=== PATIENT | female | born 1935 | race Caucasian/White ===

== ENCOUNTER 2021-04-19 16:02 | Inpatient (IN) | payer OTHER, MEDICARE, SELFPAY ==
[~2021-04-19] VITALS: Ht 162.6 cm; Wt 41.3 kg
--- NOTE | 2021-04-19 16:02 | NUR ---
BIBA TO BED 1
[2021-04-19 16:08] VITALS: BP 191/93
--- NOTE | 2021-04-19 16:13 | NUR ---
SAID AT BEDSIDE EVALUATING PT
[2021-04-19] MEDS ORDERED: LABETALOL 100 MG/20 ML VIAL IVP ONE (16:25)
[2021-04-19] MEDS ORDERED: NACL 0.9% 1,000 ML IV ONE (16:25)
--- NOTE | 2021-04-19 16:34 | NUR ---
PATIENT OUT OF ROOM SAP ARIBA CONSULTANT TO ATTEMPT ABG AT A LATER TIME
[2021-04-19] MEDS ORDERED: metroNIDAZOLE 500 MG/NS PREMIX 100 ML IV ONE (16:35)
--- NOTE | 2021-04-19 17:06 | NUR ---
85 Y/O F BIBA FROM [facility] PATIENT PRESENTS TO ED WITH NG TUBE PULLED AT CARE SITE AND NEW ONSET OF SOB. [facility] STATES PT WAS AT FACILITY, O2 STAT OF 78% ON RA, PT WAS PUT ON NONREBREATHER 10 L, NOW AT 100% . DENIES N/V/D; SKIN IS EDEMATOUS/COOL/DRY; AAOX0, NON VERBAL, BASELINE, UNABLE TO AMBULATE; LUNGS RHONCHI BILATERALLY, EVEN RISE AND FALL OF THE CHEST, TACHYPNEA 33RR; HR EVEN AND REGULAR; UNABLE TO DETERMINE PAIN; PATIENT POSITIONED FOR COMFORT; HOB ELEVATED; BEDRAILS UP X2; BED DOWN. ER MD MADE AWARE OF PT STATUS. PMH: L BASAL GANGLLEA HEMORRHAGE, ACUTE STROKE R SIDE WEAKNESS, DEMENTIA NKA PT HAS PICC LINE ON L SIDE UPPER ARM AND JONES IN PLACE
[2021-04-19 17:08] LABS: BASOPHILS % (AUTO) 0.1 % (0.0-2.0); HEMOGLOBIN 10.2 g/dL (12.0-16.0); LYMPHOCYTES # (AUTO) 0.6 K/uL (2.5-16.5); LYMPHOCYTES % (AUTO) 4.2 % (20.5-51.1); MEAN CORPUSCULAR HEMOGLOBIN 29 pg (27-31); MEAN CORPUSCULAR HGB CONC 33 g/dL (33-37); MONOCYTES # (AUTO) 1.1 K/uL (0.8-1.0); MONOCYTES % (AUTO) 7.7 % (1.7-9.3); NEUTROPHILS # (AUTO) 12.3 K/uL (1.8-7.7); PLATELET COUNT (AUTO) 166 K/uL (140-450); RED BLOOD CELL COUNT(AUTO) 3.48 MIL/uL (4.20-5.40); RED CELL DISTRIBUTION WIDTH 14.5 % (11.6-13.7)
[2021-04-19] MEDS ORDERED: cefTRIAXone 1,000 MG VIAL ONE (17:09)
[2021-04-19] MEDS ORDERED: OSMITROL 25% 12.5 GM/50 ML VIAL IV ONE ×2 (17:15→18:10)
[2021-04-19] MEDS ORDERED: NICARDIPINE HYDROCHLORIDE 25 MG in NACL 0.9% 240 ML IV ONE ×2 (17:15→19:40)
[2021-04-19] MEDS ORDERED: levETIRAcetam 1,000 MG in NACL 0.9% 100 ML IV ONE (17:15)
[2021-04-19 17:28] LABS: ALBUMIN 2.4 g/dL (3.4-5.0); ANION GAP 9.7 (8-16); ASPARTATE AMINOTRANSFERASE 41 U/L (15-37); CARBON DIOXIDE 31.7 mmol/L (21-32); CHLORIDE 111 mmol/L (98-107); GLUCOSE 132 mg/dL (74-106); SODIUM SERUM 150 mmol/L (136-145); TOTAL BILIRUBIN 0.5 mg/dL (0.0-1.0); UREA NITROGEN, BLOOD 26 mg/dL (7-18)
[2021-04-19 17:31] LABS: POTASSIUM 2.4 mmol/L (3.5-5.1)
--- NOTE | 2021-04-19 17:35 | NUR ---
14 F NG TUBE PLACED, XRAY CHEST ORDER FOR PLACEMENT
[2021-04-19 17:39] LABS: RSV NEGATIVE (NEGATIVE)
[2021-04-19] MEDS ORDERED: NICARDIPINE HYDROCHLORIDE 2.5 MG/ML VIAL IV ONE (17:55)
[2021-04-19] MEDS ORDERED: MAG SULF 2000 MG/WATER PREMIX 50 ML IV PRN (19:00)
[2021-04-19] MEDS ORDERED: ONDANSETRON 4 MG/2 ML VIAL IVP PRN (19:00)
[2021-04-19] MEDS ORDERED: levETIRAcetam 100 MG/ML VIAL IV ONE (19:03)
--- NOTE | 2021-04-19 19:27 | NUR ---
WAS NOT ABLE TO START MANNITOL DUE TO LACK OF IV SITE, ATTEMPTED 3 TIMES, NO SUCCESS, INFORMED INCOMING NURSE, MANNITOL AT BEDSIDE READY FOR INFUSION
--- NOTE | 2021-04-19 19:28 | NUR ---
Pt report given to MICHELLE VALIENTE. Transfer of care at this time.
--- NOTE | 2021-04-19 19:30 | NUR ---
received pt from Day shift Bettye Isaacs. pt in gown. connected to vs monitor. triple lumen PICC observed on Left brachial. pt is an 85 year old female brought in from [facility] with hx of CVA, Dementia, HTN for c/o misplaced NG tube and dyspnea. pt is currently a/o x 0 gcs 8. observed new 16fr indwelling urinary catheter placed. was given Mannitol for intracranial hemorrhage.
[2021-04-19 19:32] VITALS: BP 191/85
--- NOTE | 2021-04-19 19:45 | NUR ---
Per Dr. King, advance NGT 8cm.
[2021-04-19] MEDS ORDERED: POTASSIUM CHLORIDE 20% 40 MEQ/15 ML UDC NG SCH (19:50)
--- NOTE | 2021-04-19 19:59 | NUR ---
pt placed oh HFNC at 40lpm 80% fi02
--- NOTE | 2021-04-19 20:01 | NUR ---
NGT advance 8cm approx. pt tolerated well. awaiting XR confirmation .
[2021-04-19] MEDS: KCL 20 MEQ/WATER INJ PREMIX 200 ML IV PRN (20:43)
--- NOTE | 2021-04-19 21:44 | NUR ---
NAD at this time. IV lines checked and patent.
--- NOTE | 2021-04-19 22:49 | NUR ---
Nicardipine drip titrated down to 3mg/hr for BP controlled at 139/59. will continue to titrate down per protocol. pt still connected to HFNC 40lpm at 80% FI02.
[2021-04-20] VITALS (17 sets, daily range): BP systolic 138–174; BP diastolic 56–79
[2021-04-20] MEDS ORDERED: PIPERACILLIN/TAZOBACTAM 3.375 GM in DEXTROSE 5% 50 ML IV SCH ×2
--- NOTE | 2021-04-20 | NUR ---
NAD at this time. Nicardipine drip continues to run at 3mg/hr. BP goal maintained < 160mmHg.
[2021-04-20] MEDS ORDERED: NICARDIPINE HYDROCHLORIDE 25 MG in NACL 0.9% 240 ML IV PRN ×2 (00:05→09:15)
[2021-04-20] MEDS ORDERED: PIPERACILLIN/TAZOBACTAM 2.25 GM VIAL IV ONE ×2 (00:05→05:42)
[2021-04-20] MEDS ORDERED: NICARDIPINE HYDROCHLORIDE 2.5 MG/ML VIAL IV ONE (00:05)
[2021-04-20] MEDS: PIPER/TAZO 2.25GM/D5W PREMIX 50 ML IV SCH ×2 (00:18→05:47)
--- NOTE | 2021-04-20 01:46 | NUR ---
PT REMAINS ON HFNC 40L 80%. CURRENT SPO2 98% W/ RETRACTIONS PRESENT 78HR WILL CONTINUE TO MONITOR
--- NOTE | 2021-04-20 02:00 | NUR ---
NAD. All IV lines checked and patent. Nicardipine running at same rate of 3mg/hr. BP goal maintained.
--- NOTE | 2021-04-20 02:56 | NUR ---
paged for Dr. Abel regarding admission status
--- NOTE | 2021-04-20 03:02 | NUR ---
sw Dr. Abel about changing admission status and stated to change from tele to ICU admit.
--- NOTE | 2021-04-20 03:21 | NUR ---
hfnc water 3/4 full current spo2 98% hr 81 will continue to monitor
--- NOTE | 2021-04-20 04:22 | NUR ---
NAD at this time . HFNC at 40lpm 80%fi02. nicardipine drip running at 3mg/hr and maintaining BP goal.
--- NOTE | 2021-04-20 05:13 | NUR ---
Chlorohexidine wash provided. irma care provided. changed linens, sheets and gown of pt.
--- NOTE | 2021-04-20 05:23 | NUR ---
PT IS SATURATING 99% AND HEART RATE IS 77, WATER BAG ON HFNC IS 3/4 FULL, PT IS TOLERATING HFNC WELL, WILL CONTINUE TO MONITOR
[2021-04-20 05:26] LABS: BASOPHILS % (AUTO) 0.1 % (0.0-2.0); EOSINOPHILS % (AUTO) 0.1 % (0.0-4.0); HEMOGLOBIN 9.4 g/dL (12.0-16.0); LYMPHOCYTES # (AUTO) 0.8 K/uL (2.5-16.5); MEAN CORPUSCULAR HEMOGLOBIN 29 pg (27-31); MEAN CORPUSCULAR HGB CONC 32 g/dL (33-37); MEAN CORPUSCULAR VOLUME 88.8 fL (80-94); MONOCYTES # (AUTO) 1.6 K/uL (0.8-1.0); MONOCYTES % (AUTO) 11.9 % (1.7-9.3); NEUTROPHILS % (AUTO) 81.9 % (42.2-75.2); PLATELET COUNT (AUTO) 160 K/uL (140-450); RED BLOOD CELL COUNT(AUTO) 3.27 MIL/uL (4.20-5.40); RED CELL DISTRIBUTION WIDTH 14.7 % (11.6-13.7); WHITE BLOOD COUNT (AUTO) 13.4 K/uL (4.8-10.8)
[2021-04-20 05:29] LABS: APPEARANCE,URINE SL CLOUDY (CLEAR); BILIRUBIN,URINE NEGATIVE (NEGATIVE); BLOOD, URINE 3+ (NEGATIVE); COLOR,URINE YELLOW (YELLOW); LEUKOCYTE ESTERASE ,URINE NEGATIVE (NEGATIVE); NITRITE, URINE NEGATIVE (NEGATIVE); UGLUCOSE NEGATIVE (NEGATIVE)
[2021-04-20 05:44] LABS: ALBUMIN 2.2 g/dL (3.4-5.0); ANION GAP 9.3 (8-16); ASPARTATE AMINOTRANSFERASE 33 U/L (15-37); CARBON DIOXIDE 30.6 mmol/L (21-32); CHLORIDE 115 mmol/L (98-107); CREATININE 1.1 mg/dL (0.6-1.3); GLUCOSE 129 mg/dL (74-106); MAGNESIUM 1.8 mg/dL (1.8-2.4); SODIUM SERUM 152 mmol/L (136-145); TOTAL BILIRUBIN 0.5 mg/dL (0.0-1.0); UREA NITROGEN, BLOOD 29 mg/dL (7-18)
--- NOTE | 2021-04-20 05:47 | NUR ---
I&O as follows from Intake: Fluids: 625ml Output: Urine: 95ml
[2021-04-20 06:09] LABS: WBC,URINE 0-5 /HPF (0-5)
[2021-04-20 06:10] LABS: RBC,URINE >100 /HPF (0-5)
[2021-04-20 06:28] LABS: POTASSIUM 2.9 mmol/L (3.5-5.1)
--- NOTE | 2021-04-20 07:08 | NUR ---
Report and continuation of care received from STEFFANIE Bradford.
--- NOTE | 2021-04-20 07:15 | NUR ---
NAD. All IV lines checked and patent. Nicardipine running at same rate of 3mg/hr. BP goal maintained.
--- NOTE | 2021-04-20 07:28 | NUR ---
Report given to Santana BACKFILLER.
--- NOTE | 2021-04-20 07:30 | NUR ---
RECEIVED REPORT FROM ED FOR CONTINUITY OF CARE. AOX0, GCS 7. EDI NEGATIVE. DNR/MODIFIED. SR-SA ON MONITOR. ON HIFLOW NASAL CANULA AT 40L, FIO2 80%. NGT IN PLACE, NPO EXCEPT MEDS. JONES CATH INSERTED ON 04/[address]. IVS CLEAN, DRY, AND INTACT, ON BRACHIAL PICC, LATERAL KAR 18G, AND MEDIAL KAR 18G. WILL CONTINUE TO MONITOR.
--- NOTE | 2021-04-20 07:50 | NUR ---
RT at bedside; Rt placed pt onto 10L via NRB for ICU transport. SpO2 100%
--- NOTE | 2021-04-20 07:52 | NUR ---
PATIENT ARRIVED TO UNIT. WILL CONTINUE TO MONITOR.
--- NOTE | 2021-04-20 07:55 | NUR ---
Patient will be admitted to care of Dr. Abel. Admited to ICU. Will go to room ICU-5. Belongings list completed. Report to STEFFANIE Dillon.
--- NOTE | 2021-04-20 08:05 | NUR ---
PT TRANSFERRED FROM ER TO ICU WITH NO ISSUES. NO SIGNS OF RESPIRATORY DISTRESS AT THIS TIME. SPO2 95% ON HFNC 40L 60%. WILL CONTINUE TO MONITOR.
--- NOTE | 2021-04-20 08:40 | NUR ---
DR. RUBIO RETURNED RN CALL. PER DR RUBIO, BEGIN MORPHINE DRIP, HE WILL CALL COME IN TO SPEAK TO FAMILY IN REGARDS TO COMFORT MEASURES. PER DR RUBIO, ORDER NICARDIPINE DRIP.
[2021-04-20] MEDS ORDERED: NICARDIPINE HYDROCHLORIDE 25 MG in NACL 0.9% 240 ML IV ONE (09:00)
[2021-04-20] MEDS ORDERED: MORPHINE SULFATE 50 MG in NACL 0.9% 45 ML IV PRN (09:00)
--- NOTE | 2021-04-20 09:23 | NUR ---
PATIENT'S PCP, DR STANTON'S OFFICE CALLED TO NOTIFY OF PATIENT'S HOSPITAL ADMISSION. WAS PAGED BY HIS OFFICE.
[2021-04-20] MEDS: KCL 20 MEQ/WATER INJ PREMIX 200 ML IV PRN (10:36)
--- NOTE | 2021-04-20 11:29 | NUR ---
DC PLANNIN YRS OLD FEMALE PATIENT WAS ADMITTED FROM [facility] WITH A HX OF ACUTE HYPOXIC RESPIRATORY FAILURE. PT HAS A HX OF STROKE WITH RT SIDED WEAKNESS, DEMENTIA AND HTN. CT HEAD SHOWED ACUTE INTRACRANIAL HEMORRHAGE, CXR SHOWED BILATERAL AIRSPACE CONSOLIDATED AND SMALL RIGHT PLEURAL EFFUSION. RAPID COVID TEST NEGATIVE, INFLUENZA A&B NEGATIVE. URINE AND BLOOD CULTURE PENDING. ON HF OXYGEN 40 /NC SATING 97%. ADMINISTERED ZOSYN IV ABX , ON NICARDIPINE DRIP. CONSULTED WITH PULMO. DC PLAN PER PT RESPOND WITH TREATMENT . CM TO FOLLOW Addendum: 04/21/21 at 0908 by Ophelia Cyr RN DC PLANNING: PT HAS ORDER FOR HOSPICE CALLED FAMILY SPOKE WITH NAVEEN DAUGHTER AND KEENA GRAND DAUGHTER STATED DR RUBIO SPOKE WITH THEM AND UPDATED ALL THE CLINICALS AND THE PLAN FOR HOSPICE CARE. PER DAUGHTER THEY AGREED WITH HOSPICE AND ANY MD SUGGESTED HOSPICE WILL BE OK. I INFORMED THEM [facility] WILL CONTACT THEM. FAXED ALL THE PAPER WORK TO [facility]. CM TO FOLLOW Addendum: 04/21/21 at 1400 by Ophelia Cyr RN DC PLANNING: CALLED [facility] SPOKE WITH ANTOINETTE STATED THEY RECEIVED THE REFERRAL , WILL CALL THE FAMILY. CM TO FOLLOW. Addendum: 04/22/21 at 0903 by Ophelia Cyr RN DC PLANNING: RECEIVED A CALL FROM [facility] SPOKE WITH ARNOLD STATED PT IS GOING TO [facility] WITH HOSPICE. 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 NOTIFIED ZAC GRACE CM TO FOLLOW
[2021-04-20] MEDS: PIPERACILLIN/TAZOBACTAM 2.25 GM in DEXTROSE 5% 50 ML IV SCH ×2 (12:13→17:45)
--- NOTE | 2021-04-20 13:01 | NUR ---
PT. WITH LOW PARISH SCALE AT VERY HIGH RISK, CONTINUE TO FOLLOW PRESSURE INJURY PREVENTION INTERVENTIONS. -TURN AND REPOSITION PATIENT Q 2H -ASSESS AND MONITOR SKIN CONDITION DURING POSITION CHANGE -OFFLOAD BILATERAL HEELS BY PLACING PILLOWS UNDER CALVES AT ALL TIMES, UNLESS OTHERWISE CONTRAINDICATED -PRESSURE REDISTRIBUTION BY PLACING PILLOWS AND OFFLOADING SACRALCOCCYX -KEEP SKIN CLEAN AND DRY AT ALL TIMES.
--- NOTE | 2021-04-20 13:15 | NUR ---
DR SALAZAR ROUNDING ON PATIENT AT BEDSIDE. MD MADE AWARE OF LAB VALUES: CALCIUM 11.5, POTASSIUM 2.9, SODIUM 152. PER DR SALAZAR, ADMINISTER 1L BOLUS 0.45% NS. WILL PLACE ORDER AND FOLLOW UP.
[2021-04-20] MEDS ORDERED: NACL 0.45% 1,000 ML IV SCH ×2 (13:25→14:00)
--- NOTE | 2021-04-20 13:43 | NUR ---
CHECKED ON PATIENT. NO SIGNS OF DISTRESS. FLACC 0.
[2021-04-20] MEDS: MORPHINE SULFATE 4 MG/ML SYR IVP PRN ×2 (14:55→22:50)
--- NOTE | 2021-04-20 15:14 | NUR ---
PATIENT FAMILY (SON LEANDER AND HIS KIN) AT BEDSIDE WITH PATIENT AT THIS TIME. UPDATED ON PATIENT CONDITION, ALL QUESTIONS ANSWERED.
--- NOTE | 2021-04-20 15:52 | NUR ---
PATIENT HAS BEEN SCREENED AND CATEGORIZED HIGH NUTRITION RISK. PATIENT WILL BE SEEN WITHIN 1-2 DAYS OF ADMISSION. 04/20/21-04/21/21 CONTACT [facility] IF PLAN OF CARE CHANGES TO COMFORT CARE. DEUCE BURNET[address] RD
--- NOTE | 2021-04-20 17:34 | NUR ---
CHECKED ON PATIENT. NO SIGNS OF DISTRESS OR PAIN. WILL CONTINUE TO MONITOR.
--- NOTE | 2021-04-20 18:11 | NUR ---
DR RUBIO ROUNDING ON PATIENT AT BEDSIDE. CALLING FAMILY TO DISCUSS PATIENT STATUS AND DETAILS OF COMFORT CARE.
[2021-04-20] MEDS ORDERED: cloNIDine-TTS2 0.2 MG/24 HR 1 EA PATCH TD ONE (18:25)
[2021-04-20] MEDS ORDERED: cloNIDine-TTS2 0.2 MG/24 HR 1 EA PATCH TD SCH (19:00)
--- NOTE | 2021-04-20 19:19 | NUR ---
ENDORSED TO MERCEDES RN FOR CONTINUITY OF CARE.
--- NOTE | 2021-04-20 19:30 | NUR ---
RECEIVED PT FROM DAYSHIFT, LYING IN BED, AROUSABLE TO PAINFUL STIMULI ONLY. A/O X0, UNABLE TO FOLLOW SIMPLE COMMANDS. FLACC 0. PUPILS 1MM, SLUGGISH TO REACT. ON HIGH-FLOW NASAL CANULA @ 30 LPM/ 55% FI02. BREATHING LABORED. LUNGS CLEAR TO BILATERAL UPPER LOBES. BILATERAL BASES DIMINISHED. +S1, S2 NOTED UPON AUSCULTATION. BP REMAINS ELEVATED WITH NICARDIPINE DRIP IN PROGRESS FOR SBP >200. MD AWARE AND ATTEMPTING TO TITRATE PT FROM DRIP AND PLACE ON CATAPRES PATCH. LEFT UPPER ARM PICC IN PLACE, PATENT. RT AC PERIPHERAL IV, PATENT. ABD SOFT, NON-DISTENDED. NGT TO RT NARES. CONTINUES NPO EXCEPT MEDS. 100CC RESIDUAL ASPIRATED AND REPLACED. PT EMACIATED APPEARING. SAFETY PRECAUTIONS REMAIN IN PLACE WITH BED LOW AND LOCKED. CALL LIGHT IN EASY REACH. WILL CONT TO MONITOR FOR CHANGES.
--- NOTE | 2021-04-20 23:00 | NUR ---
PRN MORPHINE ADMINISTERED FOR PAIN @ THIS TIME. WILL FOLLOW-UP
--- NOTE | 2021-04-20 23:06 | NUR ---
PT SLEEPING ON HFNC 30L 55% W/ SPO2 96% AND WATER 1/4 FULL WILL CONTINUE TO MONITOR
[2021-04-21] VITALS (16 sets, daily range): BP systolic 159–199; BP diastolic 71–106
--- NOTE | 2021-04-21 | NUR ---
REPOSITIONED PT, TOLERATED WELL. FLACC 0. WILL CONT TO MONITOR.
[2021-04-21] MEDS: PIPERACILLIN/TAZOBACTAM 2.25 GM in DEXTROSE 5% 50 ML IV SCH ×4 (00:15→17:36)
--- NOTE | 2021-04-21 03:50 | NUR ---
LAB AT BEDSIDE. ASSISTED WITH BLOOD WITHDRAWAL VIA PICC LINE.
[2021-04-21 04:59] LABS: BASOPHILS % (AUTO) 0.4 % (0.0-2.0); EOSINOPHILS # (AUTO) 0.1 K/uL (0-0.4); EOSINOPHILS % (AUTO) 0.6 % (0.0-4.0); HEMATOCRIT 27.3 % (36-48); HEMOGLOBIN 8.7 g/dL (12.0-16.0); LYMPHOCYTES # (AUTO) 0.8 K/uL (2.5-16.5); LYMPHOCYTES % (AUTO) 6.7 % (20.5-51.1); MEAN CORPUSCULAR HEMOGLOBIN 29 pg (27-31); MEAN CORPUSCULAR HGB CONC 32 g/dL (33-37); MEAN CORPUSCULAR VOLUME 89.4 fL (80-94); MONOCYTES # (AUTO) 1.1 K/uL (0.8-1.0); MONOCYTES % (AUTO) 8.9 % (1.7-9.3); NEUTROPHILS # (AUTO) 10.3 K/uL (1.8-7.7); NEUTROPHILS % (AUTO) 83.4 % (42.2-75.2); PLATELET COUNT (AUTO) 170 K/uL (140-450); RED BLOOD CELL COUNT(AUTO) 3.05 MIL/uL (4.20-5.40); RED CELL DISTRIBUTION WIDTH 14.7 % (11.6-13.7); WHITE BLOOD COUNT (AUTO) 12.4 K/uL (4.8-10.8)
[2021-04-21 06:21] LABS: ALBUMIN 2.2 g/dL (3.4-5.0); ANION GAP 8.7 (8-16); ASPARTATE AMINOTRANSFERASE 50 U/L (15-37); CARBON DIOXIDE 29.8 mmol/L (21-32); CHLORIDE 118 mmol/L (98-107); CREATININE 1.1 mg/dL (0.6-1.3); GLUCOSE 106 mg/dL (74-106); MAGNESIUM 1.9 mg/dL (1.8-2.4); POTASSIUM 3.5 mmol/L (3.5-5.1); SODIUM SERUM 153 mmol/L (136-145); TOTAL BILIRUBIN 0.5 mg/dL (0.0-1.0); UREA NITROGEN, BLOOD 27 mg/dL (7-18)
--- NOTE | 2021-04-21 07:04 | NUR ---
REPORT GIVEN TO SETFFANIE FRAGA FOR CONTINUITY OF CARE.
--- NOTE | 2021-04-21 07:04 | NUR ---
REPORT RECEIVED FROM MERCEDES VALIENTE FOR CONTINUITY OF CARE. SR ON MONITOR. LUNGS CLEAR, DIMINISHED AT BASES. PT ON HIGH FLOW NASAL CANNULA 30LPM, FIO2 55%. O2 SATURATION 98%. IV SITE KAR 18G, RAC 18G BOTH INTACT AND PATENT, GOOD BLOOD RETURN. SHARA PICC LINE IN PLACE, INTACT, PATENT AND GOOD BLOOD RETURN. JONES CATHETER IN PLACE. SKIN INTACT, WARM AND DRY. HOB 30 DEGREES. BED LOCKED IN LOWEST POSITION. SAFETY PRECAUTIONS IN PLACE. WILL CONTINUE TO MONITOR.
--- NOTE | 2021-04-21 08:07 | NUR ---
RECEIVED CALL FROM [facility] REGARDING PATIENT DISCHARGE TOMORROW. PER [facility], THEY WILL SET UP THE TRANSPORTATIONS TO [facility] MACHINE OPERATOR HEAD END PATIENT AROUND [phone] TOMORROW. ALL QUESTIONS ANSWERED. WILL FOLLOW UP. Addendum: 04/22/21 at 0112 by Ant Sweet RN RN RECEIVED CALL AT [id number]/21/2021
--- NOTE | 2021-04-21 09:00 | NUR ---
PT REPOSITIONED. PT ON HIGH FLOW NASAL CANNULA 24 LPM, FIO2 55%. O2 SATURATION 98%. SAFETY PRECAUTIONS IN PLACE. WILL CONTINUE TO MONITOR.
--- NOTE | 2021-04-21 11:37 | NUR ---
PAGED DR RUBIO. BP MADE AWARE 218/90. DOWNGRADE TO [employer]. ORDERS TO TITRATE TO OXIMIZER 15L NASAL CANNULA.
--- NOTE | 2021-04-21 12:37 | NUR ---
PLACED PT ON 15L OXYMIZER, SPO2 100%. TOLERATING WELL, WILL CONTINUE TO MONITOR.
--- NOTE | 2021-04-21 12:40 | NUR ---
PATIENT TRANSFERRED TO ROOM 108 B WITHOUT ANY INCIDENT. [address], POSITIONED PATIENT COMFORTABLY, OFFLOAD WITH PILLOWS, AND HEEL PROTECTORS IN PLACE. FALL RISK PROTOCOL IN PLACE. BED ALARM ACTIVATED. SAFETY MEASURES IN PLACE.
--- NOTE | 2021-04-21 14:26 | NUR ---
[facility] SERVICES NO LONGER NEEDED, PLEASE CONTACT RD IF THERE ARE ANY CHANGES IN STATUS.
--- NOTE | 2021-04-21 14:53 | NUR ---
FOUND PATIENT PULL OUT HER NG TUBE, TOOK OFF OXIMIZER AND ATTEMPTING TO GET OUT OF BED. ASSESSED NG TUBE, NO NOSE BLEEDING. APPLIED OXIMIZER AND SPO2 96% AT THIS TIME. REPOSITIONED PATIENT, OFFLOAD PRESSURE WITH PILLOWS, HEEL PROTECTORS. EDUCATED PATIENT NOT TO REMOVE LINE, TUBE. REINFORCEMENT NEEDED DUE TO MENTAL STATUS. BED ALARM ACTIVATED. SAFETY MEASURES IN PLACE.
--- NOTE | 2021-04-21 15:00 | NUR ---
SON LEANDER AND DAUGHTER IN LAW ARE BY BEDSIDE VISITING PATIENT. UPDATED BOTH WITH PATIENT'S CONDITION AND ANSWERED ALL THEIR QUESTIONS.
--- NOTE | 2021-04-21 16:05 | NUR ---
PATIENT'S DAUGHTER NAVEEN IS AT BEDSIDE VISITING PATIENT. NO SIGNS OF ACUTE DISTRESS NOTED. SAFETY MEASURES IN PLACE.
--- NOTE | 2021-04-21 16:19 | NUR ---
DR RUBIO IS ASSESSING AND ROUNDING PATIENT AT BEDSIDE.
--- NOTE | 2021-04-21 16:23 | NUR ---
HIGH BP, DR RUBIO MADE AWARE. NO ORDER RECEIVED AT THIS TIME.
--- NOTE | 2021-04-21 17:37 | NUR ---
SCHEDULED ZOSYN ADMINISTERED. DAUGHTER NAVEEN IS AT BEDSIDE. NO SIGNS OF ACUTE DISTRESS NOTED. SAFETY MEASURES IN PLACE.
[2021-04-21] MEDS ORDERED: CLON-528 TD (18:24)
--- NOTE | 2021-04-21 19:29 | NUR ---
ENDORSED TO NIGHTSHIFT NURSE FOR CONTINUITY OF CARE. PATIENT STABLE AT THIS TIME.
--- NOTE | 2021-04-21 19:30 | NUR ---
RECEIVED REPORT FROM AM NURSE FOR CONTINUITY OF CARE. PATIENT IS AWAKE, APHASIC. RESPIRATORY EVEN AND UNLABORED, ON 15L OXYMIZER, O2 SAT 100%, NO SIGN OF DISTRESS NOTED. SKIN WARM, DRY, NON DIAPHORETIC. TWO IV ON RIGHT UPPER ARM 18G, INTACT AND PATENT, SALINE LOCK. LEFT UPPER ARM PICC TRIPLE LUMENS, INTACT AND PATENT. JONES IN PLACE, CLEAR YELLOW URINE. PLAN OF CARE DISCUSSED. PRECAUTION IN PLACE. HOB ELEVATED. CALL LIGHT WITHIN REACH. WILL CONTINUE TO MONITOR.
--- NOTE | 2021-04-21 20:08 | NUR ---
CONTACT DR BRICEÑO REGARDING PATIENT'S BP 189/106, HR 94. PER , CLONIDINE 0.1MG PO Q6H PRN FOR SBP>160. WILL FOLLOW ORDER.
[2021-04-21] MEDS ORDERED: CLONIDINE HYDROCHLORIDE 0.1 MG TAB PO PRN (20:25)
--- NOTE | 2021-04-21 20:48 | NUR ---
ADMINISTER PRN MEDICATION ORDER WITH EDUCATION. PATIENT TOLERATED WELL. NO SIGN OF DISTRESS NOTED. PRECAUTION IN PLACE. HOB ELEVATED. CALL LIGHT WITHIN REACH. WILL CONTINUE TO MONITOR.
--- NOTE | 2021-04-21 22:27 | NUR ---
CONTACTED DR BRICEÑO REGARDING PATIENT'S BLOOD PRESSURE IS TRENDING UP 235/105, HR 102. PER DR, LABETALOL 20MG IV Q2H PRN FOR SBP>160. WILL FOLLOW ORDER.
[2021-04-21] MEDS: LABETALOL 100 MG/20 ML VIAL IVP PRN (22:53)
--- NOTE | 2021-04-21 22:53 | NUR ---
PRN MEDICATION FOR ELEVATED BP GIVEN WITH EDUCATION. PATIENT TOLERATED WELL. NO SIGN OF DISTRESS NOTED. PRECAUTION IN PLACE. HOB ELEVATED. CALL LIGHT WITHIN REACH. WILL CONTINUE TO MONITOR.
--- NOTE | 2021-04-21 23:53 | NUR ---
RE CHECK BP 168/78, HR 72. PATIENT IS RESTING, NO SIGN OF DISTRESS NOTED, O2 SAT 100%. PRECAUTION IN PLACE. HOB ELEVATED. CALL LIGHT WITHIN REACH. WILL CONTINUE TO MONITOR.
[2021-04-22] MEDS: PIPERACILLIN/TAZOBACTAM 2.25 GM in DEXTROSE 5% 50 ML IV SCH ×3 (00:08→12:17)
--- NOTE | 2021-04-22 02:00 | NUR ---
ROUND CHECK. PATIENT IS SLEEPING. CHEST RISE AND FALL, NO SIGN OF DISTRESS NOTED, O2 SAT 99%. PRECAUTION IN PLACE. HOB ELEVATED. CALL LIGHT WITHIN REACH. WILL CONTINUE TO MONITOR.
[2021-04-22 04:00] VITALS: BP 178/77
--- NOTE | 2021-04-22 04:00 | NUR ---
PATIENT IS SLEEPING, CHEST RISE AND FALL, NO SIGN OF DISTRESS NOTED, O2 SAT 100%. PRECAUTION IN PLACE. HOB ELEVATED. CALL LIGHT WITHIN REACH. WILL CONTINUE TO MONITOR.
[2021-04-22] MEDS: LABETALOL 100 MG/20 ML VIAL IVP PRN (04:51)
--- NOTE | 2021-04-22 04:51 | NUR ---
PRN MEDICATION GIVEN FOR ELEVATED BLOOD PRESSURE. PATIENT TOLERATED WELL. PRECAUTION IN PLACE. HOB ELEVATED. CALL LIGHT WITHIN REACH. WILL CONTINUE TO MONITOR.
[2021-04-22 05:51] VITALS: BP 146/77
--- NOTE | 2021-04-22 05:51 | NUR ---
RECHECK BP 146/77, HR 77. PATIENT IS NO SIGN OF DISTRESS. PRECAUTION IN PLACE. HOB ELEVATED. CALL LIGHT WITHIN REACH. WILL CONTINUE TO MONITOR.
[2021-04-22 06:58] LABS: BASOPHILS % (AUTO) 0.1 % (0.0-2.0); EOSINOPHILS # (AUTO) 0.1 K/uL (0-0.4); EOSINOPHILS % (AUTO) 0.7 % (0.0-4.0); HEMOGLOBIN 8.8 g/dL (12.0-16.0); LYMPHOCYTES # (AUTO) 0.6 K/uL (2.5-16.5); LYMPHOCYTES % (AUTO) 5.9 % (20.5-51.1); MEAN CORPUSCULAR HEMOGLOBIN 29 pg (27-31); MEAN CORPUSCULAR HGB CONC 32 g/dL (33-37); MEAN CORPUSCULAR VOLUME 90.4 fL (80-94); MONOCYTES # (AUTO) 0.8 K/uL (0.8-1.0); MONOCYTES % (AUTO) 7.7 % (1.7-9.3); NEUTROPHILS # (AUTO) 9.3 K/uL (1.8-7.7); NEUTROPHILS % (AUTO) 85.6 % (42.2-75.2); PLATELET COUNT (AUTO) 189 K/uL (140-450); RED BLOOD CELL COUNT(AUTO) 2.99 MIL/uL (4.20-5.40); RED CELL DISTRIBUTION WIDTH 14.7 % (11.6-13.7); WHITE BLOOD COUNT (AUTO) 10.8 K/uL (4.8-10.8)
--- NOTE | 2021-04-22 07:04 | NUR ---
RECEIVED REPORT FROM NIGHT NURSE. ACCORDING TO NIGHT NURSE. PT IS ON 15 L OPTIMIZER. PT IS DNR AND AWAITING TRANSFER TO HOSPICE FACILITY. PT'S SKIN IS INTACT. PT HAS A PICC LINE ON LEFT FOREARM. PT HAS TWO IV SITES ON RIGHT ARM. B/P HAD BEEN UNSTABLE AND CLONIDINE AND LABATALOL WERE GIVEN. WILL CONTINUE PLAN OF CARE.
--- NOTE | 2021-04-22 07:05 | NUR ---
ENDORSED PATIENT TO AM NURSE FOR CONTINUITY OF CARE. PATIENT IS STABLE.
[2021-04-22 07:24] LABS: ANION GAP 6.4 (8-16); ASPARTATE AMINOTRANSFERASE 39 U/L (15-37); CARBON DIOXIDE 34.5 mmol/L (21-32); CHLORIDE 117 mmol/L (98-107); GLUCOSE 95 mg/dL (74-106); MAGNESIUM 1.6 mg/dL (1.8-2.4); SODIUM SERUM 155 mmol/L (136-145); TOTAL BILIRUBIN 0.5 mg/dL (0.0-1.0); UREA NITROGEN, BLOOD 21 mg/dL (7-18)
[2021-04-22 07:36] LABS: POTASSIUM 2.9 mmol/L (3.5-5.1)
--- NOTE | 2021-04-22 08:01 | NUR ---
APPLIED PADDING TO SIDE RAILS FOR SEIZURE PRECAUTION. PT HAS A NA LEVEL OF 155H AND K LEVEL OF 2.9L. CALL LIGHT IS WITHIN REACH. SAFETY PRECAUTIONS IN PLACE. WILL ROUND HOURLY. WILL CONTINUE TO MONITOR.
[2021-04-22] MEDS: KCL 20 MEQ/WATER INJ PREMIX 200 ML IV PRN (08:19)
--- NOTE | 2021-04-22 08:26 | NUR ---
ADMINISTERED 20MEQ OF K-RIDER. PT'S POTASSIUM LEVEL IS 2.9L. SEIZURE PRECAUTIONS ARE IN PLACE. IV INFUSION IS RUNNING WELL. CALL LIGHT WITHIN REACH. SAFETY PRECAUTIONS IN PLACE. WILL CONTINUE TO MONITOR.
--- NOTE | 2021-04-22 08:33 | NUR ---
PT. ADMITTED WITH LOW PARISH SCALE AT HIGH RISK, CONTINUE TO FOLLOW PRESSURE INJURY PREVENTION INTERVENTIONS. -TURN AND REPOSITION PATIENT Q 2H -ASSESS AND MONITOR SKIN CONDITION DURING POSITION CHANGE -OFFLOAD BILATERAL HEELS BY PLACING PILLOWS UNDER CALVES AT ALL TIMES, UNLESS OTHERWISE CONTRAINDICATED -PRESSURE REDISTRIBUTION BY PLACING PILLOWS AND OFFLOADING SACRALCOCCYX -KEEP SKIN CLEAN AND DRY AT ALL TIMES.
--- NOTE | 2021-04-22 08:36 | NUR ---
ASSESSED PT EATNG WITH BEAD TRIMMER ASSISTANCE AND PT WAS UNABLE TO SWALLOW. PT STARTED CHOKING AND WAS ABLE TO STABILIZE. INFORMED CHARGE NURSE ANN ABOUT THE SITUATION AND WAS TOLD THAT SHE WILL BE TRANSFERRED TO HOSPICE.
--- NOTE | 2021-04-22 10:55 | NUR ---
CALLED [facility] AND GAVE REPORT TO JERSON VALIENTE FOR PT UPDATES.
--- NOTE | 2021-04-22 12:06 | NUR ---
PATIENT ON 5 LPM OXYGEN VIA OXIMIZER, OXYGEN SATURATION AT 96%.
--- NOTE | 2021-04-22 12:20 | NUR ---
SCHEDULED MEDICATION GIVEN ZOSYN 2.26 GRAMS INFUSING WELL PT ON 5LPM OXYGEN VIA OXIMIZER SATURATION AT 100%.
--- NOTE | 2021-04-22 12:40 | NUR ---
DISCHARGED INSTRUCTIONS GIVEN TO [facility] GAVE REPORT TO JERSON VALIENTE, INSTRUCTED TO CONTINUE PT MEDICATION, CHANGED PATIENT GOWN AND GAVE A BED BATH, REMOVED ID BANDS.IV INTACT ON LEFT UPPER ARM PICC LINE AND JONES CATHETER IN PLACE.PT IS DISCHARGE TO [facility] ACCOMPANIED BY TRANSPORT CREW. PT IS STABLE.
[2021-04-27] MEDS ORDERED: cloNIDine-TTS2 0.2 MG/24 HR 1 EA PATCH TD SCH (09:00)
== END 2021-04-22 12:40 | DRG 720 ==
LOC: MED 16:02 → MTU 19:04 → MIC 04-20 05:46 → MTU 04-21 12:40
PROVIDERS: ADMIT Hospitalist; ATTEND Hospitalist
DX: A41.9 Sepsis, unspecified organism (principal); J69.0 Pneumonitis due to inhalation of food and vomit; I62.9 Nontraumatic intracranial hemorrhage, unspecified; J96.01 Acute respiratory failure with hypoxia; G93.40 Encephalopathy, unspecified; E87.0 Hyperosmolality and hypernatremia; I16.0 Hypertensive urgency; F03.90 Unspecified dementia, unspecified severity, without behavioral disturbance, psychotic disturbance, mood disturbance, and anxiety; I10 Essential (primary) hypertension; Z66 Do not resuscitate; Z20.822 Contact with and (suspected) exposure to COVID-19
CPT/HCPCS: 36415; 36600; 70450; 71045; 80053; 81001; 82140; 82803; 83605; 83735; 83880; 84484; 85025; 87040; 87081; 87086; 87420; 87804; 93005; 96365; 96366; 96367; 96368; 96375; 99291; J0696; J1953; J2150; J2270; J2543; J3480; J3490; J7030; J7060